=== PATIENT | female | born 1985 | race Hispanic/Latino ===

== ENCOUNTER 2018-10-10 13:05 | Emergency (ER) | payer OTHER ==
[2018-10-10 13:49] VITALS: BMI 40.3
[2018-10-10] MEDS ORDERED: Betamethasone Soluspan 30 mg/5mL Inj Susp IM ONE (13:54)
[2018-10-10 14:16] LABS: BASO # 0.1 K/uL (0.0-0.2); BASO % 0.6 % (0.0-2.0); EOS # 0.3 K/uL (0.0-0.7); EOS % 2.7 % (0.0-4.0); HEMOGLOBIN 12.1 g/dL (11.0-16.0); LYMPH # 2.2 K/uL (1.0-4.3); LYMPH % 21.2 % (20.0-40.0); MEAN CELL VOLUME 82.2 fL (81.0-99.0); MEAN CORPUSCULAR HEMOGLOBIN 28.1 pg (27.0-31.0); MEAN CORPUSCULAR HGB CONC 34.2 g/dL (33.0-37.0); MONO # 0.6 K/uL (0.0-0.8); MONO % 6.1 % (0.0-10.0); NEUT # 7.2 K/uL (1.8-7.0); NEUT % 69.4 % (50.0-75.0); RBC 4.3 Mil/uL (3.80-5.20); RED CELL DISTRIBUTION WIDTH 14.3 % (11.5-14.5); WHITE BLOOD COUNT 10.3 K/uL (4.8-10.8)
[2018-10-10] MEDS ORDERED: Lactated Ringer's 1,000 ML IV SCH (14:30)
[2018-10-10 14:31] LABS: SQUAMOUS EPITHIAL 9 /hpf (0-5); URINE BACTERIA RARE (<OCC); URINE BILIRUBIN NEGATIVE (NEGATIVE); URINE BLOOD 3+ (NEGATIVE); URINE CLARITY Hazy (Clear); URINE COLOR Yellow (YELLOW); URINE GLUCOSE (UA) NORMAL (Normal); URINE LEUKOCYTE ESTERASE TRACE Leu/uL (Negative); URINE PROTEIN 1+ mg/dL (NEGATIVE); URINE UROBILINOGEN NORMAL mg/dL (0.2-1.0)
[2018-10-10 14:51] LABS: ALB/GLOB RATIO 1.2 (1.0-2.1); ALBUMIN 3.6 g/dL (3.5-5.0); ALT/SGPT 10 U/L (9-52); AST/SGOT 20 U/L (14-36); BLOOD UREA NITROGEN 7 mg/dL (7-17); GFR NON-AFRICAN AMERICAN > 60; URIC ACID 3.8 mg/dL (2.2-7.5)
--- NOTE | 2018-10-10 15:27 | US ---
Date of service: 10/10/2018 PROCEDURE: OB Pelvic Ultrasound HISTORY: h/o marginal previa, vaginal bleeding COMPARISON: None available. FINDINGS: UTERUS: There is a single live intrauterine fetus in cephalic presentation. Placenta is anterior. BPD: 9.09 cm corresponding to 36 weeks and 6 days of gestational age. HC: 32.94 cm corresponding to 37 weeks and 3 days of gestational age. AC: 32.38 cm corresponding to 36 weeks and 2 days of gestational age. FL: 7.15 cm corresponding to 36 weeks and 4 days of gestational age with age (Ultrasound estimated): 36 weeks and 6 days Date of delivery (Ultrasound estimated) : 11/01/2018 Heart rate: 146 bpm. Ngozi-gestational hemorrhage: None. CERVIX: Cervical length measures 2.06 cm. No cervical abnormality seen. FREE FLUID: None. OTHER FINDINGS: Biophysical profile: breathin body movement: 2 Tone: 2 Amniotic Fluid: 2 Total score: 8/ 8 IMPRESSION: Single live intrauterine fetus in cephalic presentation with mean gestational age of 36 weeks and 6 days. Placenta is anterior. Cervical length is 2 cm. The estimated date of delivery by ultrasound is 11/01/2018. biophysical profile score is 8/ 8. Please note this is a limited OB ultrasound performed on an emergent basis. Clinical follow-up is advised.
--- NOTE | 2018-10-10 17:40 | OBHP ---
Datetime: 10/10/2018 13:53 IP Adm Impression: , intrauterine ; No Active Labor IP Admit Plan: Observation/Evaluation Admit Comment, IP Provider: This is a private patient of Dr. Karlene Elmore CC: Vaginal bleeding, history of marginal placenta previa HPI: Patient is a 32 year old at 36 weeks 3 days with history of marginal placenta previa presenti ng with vaginal bleeding. Patient states that she was at her OB's (Dr. Elmore) office for a routine vi sit this [facility] when she was found to have some vaginal bleeding during the digital exam. She was in structed to come to the hospital. She states that she was diagnosed with marginal placenta previa at 20 weeks. She states that this is the first time she is bleeding during the . She noticed triplett ving dark colored urine this morning and noticed some blood only when she wipes with the toilet paper . She denies seeing any blood clots on the toilet paper or toilet bowl. She states that she feels fe dario movements and complains of some abdominal cramping that she states that is normal for her. She de nies fevers, chills, shortness of breath, chest pain, abdominal pain, nausea, vomiting, diarrhea, or dysuria. 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 Periods are regular every 30 days. Denies history of STD's. PMH: denies PSH: denies Allergies: NKDA Family Hx: Mom 50s has HTN. Father 60s is healthy. Social hx: Denies tobacco, alcohol, or drug use during preganancy. 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 Assessment: Patient is a 32 year old at 36 weeks 3 days with history of marginal placenta pre via presenting with vaginal bleeding. Plan: - Biophysical profile pending - Bethamethasone 12mg IM given - IV fluids: LR @ 125ml/hr - Follow up UA, labs, RPR - Repeat CBC in 4 hours - Case discussed with Dr. Crow Haney, PGY-1 Attending Note: patient seen and evaluated by me with the Resident. I performed the speculum exam personally. I agree with the above as documented. - Patient is S/P Ob ultrasound with BPP: 36w 6d, EFW 6lb 9oz; cephalic presentation; anterior plac enta. MARCELO 9.78 cm; BPS 8/8 - Labs: Hgb 12.1; plt 130K. U/A: large blood, protein 3+ (secondary to large blood). All else wnl/ negative All of the above D/W Dr. Elmore: awaiting results of repeat CBC. Extremities - PN: Normal Abdomen - PN: Normal Back - PN: Not Done Breast - PN: Not Done Lungs - PN: Normal Heart - PN: Normal Thyroid - PN: Not Done Neurologic - PN: Normal HEENT - PN: Normal General - PN: Normal FHR - Baseline A Provider: 140 Comments, ACOG Physical Exam: General: NAD, AAO X3 Heart: RRR, normal S1, S2 Lungs: CTA b/l Abdomen: Soft, non-tender, normal bowel sounds. Patient is obese. Extremities: no edema Speculum exam: Cervix appears closed. Scant mucoid bloody discharge noted around cervix. No active bleeding EGA AdmitDate IP: 36.3 Vital Signs Provider: Reviewed; Within Normal Limits IP Chief Complaint: Vaginal bleeding NICHD Variability Prov Fetus A: Moderate 6-25bpm NICHD Accel Fetus A IP Provider: 15X15 FHR Category Provider Fetus A: Category I NICHD Decel Fetus A IP Provider: None Dilatation, Provider: deferred Genitourinary Exam: Normal
[2018-10-10 18:24] LABS: BASO # 0.1 K/uL (0.0-0.2); BASO % 0.4 % (0.0-2.0); EOS # 0.1 K/uL (0.0-0.7); EOS % 0.8 % (0.0-4.0); HEMOGLOBIN 12.1 g/dL (11.0-16.0); LYMPH # 1.5 K/uL (1.0-4.3); LYMPH % 10.6 % (20.0-40.0); MEAN CORPUSCULAR HGB CONC 32.6 g/dL (33.0-37.0); MEAN PLATELET VOLUME 8.7 fL (7.2-11.7); MONO # 0.4 K/uL (0.0-0.8); MONO % 2.8 % (0.0-10.0); NEUT # 11.7 K/uL (1.8-7.0); NEUT % 85.4 % (50.0-75.0); RBC 4.47 Mil/uL (3.80-5.20); RED CELL DISTRIBUTION WIDTH 14.2 % (11.5-14.5); WHITE BLOOD COUNT 13.7 K/uL (4.8-10.8)
--- NOTE | 2018-10-10 18:58 | OBPN ---
Datetime: 10/10/2018 18:49 IP Progress Plan: Discharge FHR - Baseline A Provider: 145 Gestation - Est Wks by US: 36w 3d Presentation-Admit: Vertex IP Progress Note Comment: Patient denies any vaginal bleeding. (+) FM Repeat Hgb 12.1 plt 126K Category [address] Elmore: discharge patient home Assessment:: 32 y.o. P0, 36w 3d, third trimester vaginal bleeidng abated, h/o marginal placenta pr aevia. S/P 1 of 2 doses of celestone. Hgb stable. Categoary 1 tracing. Mitzietn is clinically stable. Plan: 1) Discharge home 2) Excuse from work for this week 3) Return to L_D 1400 yhours for 2nd dose of celestone 4) F/U Dr. Elmore in 1 week, Tuesday - as per and discussed with Dr. Elmore Vital Signs Provider: Reviewed; Within Normal Limits NICHD Accel Fetus A IP Provider: 15X15 FHR Category Provider Fetus A: Category I NICHD Variability Prov Fetus A: Moderate 6-25bpm NICHD Decel Fetus A IP Provider: None Datetime: 10/10/2018 13:53 Dilatation, Provider: deferred
[2018-10-10 23:03] VITALS: BP 130/64; PULSE 101
== END 2018-10-10 19:03 | disposition home or self-care (01) ==
LOC: C.EROB 13:05
DX: O46.93 Antepartum hemorrhage, unspecified, third trimester (principal); Z3A.36 36 weeks gestation of pregnancy
CPT/HCPCS: 76815; 76818; 80053; 81001; 83615; 84550; 85025; 85384; 85610; 85730; 86592; 96372; 99284; J0702; J7120

== ENCOUNTER 2018-10-11 16:04 | Emergency (ER) | payer OTHER ==
[2018-10-10 13:49] VITALS: BMI 40.3
[2018-10-11] MEDS ORDERED: Betamethasone Soluspan 30 mg/5mL Inj Susp IM ONE (16:22)
--- NOTE | 2018-10-11 18:03 | OBHP ---
Datetime: 10/11/2018 16:29 IP Adm Impression: , intrauterine ; No Active Labor; Intact Membranes IP Chief Complaint Other: Second dose of celestone IP Admit Plan: Discharge home Admit Comment, IP Provider: Patient is a 32 year old at 36w4d CLAIRE 11/04/18 by LMP who presents t o the unit for second dose of celestone. Patient is doing well, offers no complaints at this time. Sh e endorses +FM, denies CTX, vaginal bleeding or leakage of fluid. Patient is a private of Dr Karlene edouard. 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 Family Hx: Mom has HTN. Father is healthy. PE: see above A/P: Patient is a 32 year old at 36w4d who presents for second dose of celestone. Pt was seen yesterday with c/o of vaginal bleeding. Hx of Marginal Previa that had ressolved. Pt was also having irregular contractions that ressolved with IV Hydration and was given one dose of Celestone prior to discharge home to return today for 2nd dose. -NST is reactive, Category I tracing -Second dose of celestone administered -Patient to follow up with Dr Elmore as scheduled on Tuesday - labor precautions given Plan discussed with Dr Shimon Vogt DO PGY-2 Pt seen and examined with Dr. Vogt and agree with all of her findings and POC Pelvic Type - PN: Adequate Extremities - PN: Normal Abdomen - PN: Normal Back - PN: Normal Breast - PN: Not Done Lungs - PN: Normal Heart - PN: Normal Thyroid - PN: Normal Neurologic - PN: Normal HEENT - PN: Normal General - PN: Normal FHR - Baseline A Provider: 135 Membranes, Provider: Intact Contraction Comments Provider: none Comments, ACOG Physical Exam: VSS Gen: AAOx3 Abd: Soft, gravid Ext: No clubbing, cyanosis, edema EGA AdmitDate IP: 36.4 Vital Signs Provider: Reviewed; Within Normal Limits IP Chief Complaint: Other NICHD Variability Prov Fetus A: Moderate 6-25bpm NICHD Accel Fetus A IP Provider: 15X15 FHR Category Provider Fetus A: Category I NICHD Decel Fetus A IP Provider: None Dilatation, Provider: Deferred Genitourinary Exam: Normal DTRs - PN: Normal Datetime: 10/10/2018 18:49 Presentation-Admit: Vertex Gestation - Est Wks by US: 36w 3d
[2018-10-11 20:53] VITALS: BP 121/58; PULSE 97; RESP 20; TEMP 97.7
== END 2018-10-11 16:35 | disposition home or self-care (01) ==
LOC: C.EROB 16:04
DX: Z23 Encounter for immunization (principal); Z3A.36 36 weeks gestation of pregnancy
CPT/HCPCS: 96372; 99283; J0702

== ENCOUNTER 2018-10-29 08:52 | Inpatient (IN) | payer BC, OTHER ==
--- NOTE | 2018-10-29 09:34 | OBADHP ---
Datetime: 10/29/2018 09:30 Admit Comment, IP Provider: A/P: IUP at 39+ wks in labor - primagravida - admit to unit for labor - reassess in 2 hours - Dr Elmore notified Presentation-Admit: Vertex FHR - Baseline A Provider: 160 Membranes, Provider: Intact Contraction Comments Provider: q5 Vital Signs Provider: Reviewed IP Chief Complaint: Uterine contractions NICHD Variability Prov Fetus A: Moderate 6-25bpm NICHD Accel Fetus A IP Provider: 15X15 FHR Category Provider Fetus A: Category I NICHD Decel Fetus A IP Provider: None Dilatation, Provider: 5 Effacement, Provider: 80 Station, Provider: 0 EGA AdmitDate IP: 39.1 IP Adm Impression: Term, intrauterine ; Active labor IP Admit Plan: Admit to unit; Initiate labor protocol Datetime: 10/11/2018 16:29 IP Chief Complaint Other: Second dose of celestone Pelvic Type - PN: Adequate Extremities - PN: Normal Abdomen - PN: Normal Back - PN: Normal Breast - PN: Not Done Lungs - PN: Normal Heart - PN: Normal Thyroid - PN: Normal Neurologic - PN: Normal HEENT - PN: Normal General - PN: Normal Comments, ACOG Physical Exam: VSS Gen: AAOx3 Abd: Soft, gravid Ext: No clubbing, cyanosis, edema Genitourinary Exam: Normal DTRs - PN: Normal Datetime: 10/10/2018 18:49 Gestation - Est Wks by US: 36w 3d
[2018-10-29] MEDS ORDERED: Lactated Ringer's 1,000 ML IV SCH (09:35)
[2018-10-29 10:16] LABS: BASO # 0.1 K/uL (0.0-0.2); BASO % 0.7 % (0.0-2.0); EOS # 0.4 K/uL (0.0-0.7); HEMOGLOBIN 12.9 g/dL (11.0-16.0); LYMPH # 2.5 K/uL (1.0-4.3); MEAN CELL VOLUME 82.3 fL (81.0-99.0); MEAN CORPUSCULAR HEMOGLOBIN 27.6 pg (27.0-31.0); MEAN CORPUSCULAR HGB CONC 33.6 g/dL (33.0-37.0); MEAN PLATELET VOLUME 8.9 fL (7.2-11.7); MONO # 0.8 K/uL (0.0-0.8); MONO % 6.1 % (0.0-10.0); NEUT # 8.7 K/uL (1.8-7.0); NEUT % 70.2 % (50.0-75.0); NRBC % 0.1 % (0.0-2.0); RBC 4.65 Mil/uL (3.80-5.20); RED CELL DISTRIBUTION WIDTH 14.9 % (11.5-14.5); WHITE BLOOD COUNT 12.4 K/uL (4.8-10.8)
[2018-10-29 10:33] LABS: PROTHROMBIN TIME 10.9 SECONDS (9.7-12.2)
[2018-10-29 10:38] LABS: SQUAMOUS EPITHIAL 1 /hpf (0-5); URINE BILIRUBIN NEGATIVE (NEGATIVE); URINE BLOOD NEGATIVE (NEGATIVE); URINE CLARITY Clear (Clear); URINE COLOR Straw (YELLOW); URINE GLUCOSE (UA) NORMAL (Normal); URINE LEUKOCYTE ESTERASE NEG Leu/uL (Negative); URINE PROTEIN NEGATIVE (NEGATIVE); URINE UROBILINOGEN NORMAL mg/dL (0.2-1.0)
[2018-10-29 10:48] LABS: ALB/GLOB RATIO 1.2 (1.0-2.1); ALBUMIN 3.7 g/dL (3.5-5.0); ALT/SGPT < 6 U/L (9-52); AST/SGOT 17 U/L (14-36); BLOOD UREA NITROGEN 9 mg/dL (7-17); GFR NON-AFRICAN AMERICAN > 60
[2018-10-29] MEDS ORDERED: Fentanyl/Bupivacaine HCl 250 ML EPI ONE (11:30)
--- NOTE | 2018-10-29 12:44 | OBPN ---
Datetime: 10/29/2018 12:37 IP Progress Impression Other: Decreased FHR/Loss of contact IP Procedures: Artificial ROM; Scalp Electrode; Sterile Vag Exam IP Progress Plan: Continue present management Membranes, Provider: Ruptured Amniotic Fluid Color, Provider: Clear FHR - Baseline A Provider: 160 IP Fetus A Comments: Loss of contact IP Progress Note Comment: A/P: IUP at 39+ wks in labor - primagravida - s/p epidural, maternal BP decreased, Anesthesia called s/p ephedrine - AROM with scalp electrode placed - resuscitation efforts (maternal O2, placement on maternal left) - will reassess in 1-2 hours Vital Signs Provider: Reviewed NICHD Accel Fetus A IP Provider: 15X15 FHR Category Provider Fetus A: Category II NICHD Variability Prov Fetus A: Moderate 6-25bpm NICHD Decel Fetus A IP Provider: Variable Datetime: 10/29/2018 09:30 Contraction Comments Provider: q5 Presentation-Admit: Vertex Dilatation, Provider: 5 Effacement, Provider: 80 Station, Provider: 0
--- NOTE | 2018-10-29 15:50 | OBPN ---
Datetime: 10/29/2018 15:48 IP Progress Impression: Normal progression of labor IP Progress Plan: Continue present management Contraction Comments Provider: q2-3 FHR - Baseline A Provider: 150 IP Progress Note Comment: A/P: IUP at 39+ wks in labor - primagravida - AROM - Cat 1 tracing, progressing well - s/p epidural - continue present mgmt NICHD Accel Fetus A IP Provider: 15X15 FHR Category Provider Fetus A: Category I NICHD Variability Prov Fetus A: Moderate 6-25bpm Dilatation, Provider: 7 Effacement, Provider: 90 Station, Provider: 0 NICHD Decel Fetus A IP Provider: None
--- NOTE | 2018-10-29 18:19 | OBPN ---
Datetime: 10/29/2018 18:17 IP Progress Impression: Normal progression of labor Contraction Comments Provider: q3 FHR - Baseline A Provider: 150 IP Progress Note Comment: A/P: IUP at 39 wks in labor - primagravida - AROM - normal progression - expect vaginal delivery Vital Signs Provider: Reviewed NICHD Accel Fetus A IP Provider: 15X15 FHR Category Provider Fetus A: Category I NICHD Variability Prov Fetus A: Moderate 6-25bpm Dilatation, Provider: 8 Effacement, Provider: 90 Station, Provider: 0 NICHD Decel Fetus A IP Provider: None
--- NOTE | 2018-10-29 20:51 | OBPN ---
Datetime: 10/29/2018 20:47 IP Progress Impression: Normal progression of labor IP Progress Plan: Continue present management Contraction Comments Provider: q2 FHR - Baseline A Provider: 150 IP Progress Note Comment: A/P: IUP at 39 wkes in labor - primagravida - fully - expect vaginal delivery Vital Signs Provider: Reviewed NICHD Accel Fetus A IP Provider: 15X15 FHR Category Provider Fetus A: Category I NICHD Variability Prov Fetus A: Moderate 6-25bpm Dilatation, Provider: 10 Effacement, Provider: 100 Station, Provider: 1 NICHD Decel Fetus A IP Provider: Early
[2018-10-29] MEDS ORDERED: Oxycodone/Acetaminophen 5/325 mg Tab PO PRN (23:48)
[2018-10-29] MEDS ORDERED: Benzocaine/Menthol 20%-0.5% Topical Spray (60 ml) TOP PRN (23:48)
--- NOTE | 2018-10-29 23:48 | OBDS ---
DELIVERY PERSONNEL Delivery Doctor: Mikey Aguilar DO System Designer: Chantelle Cunningham RN Anesthesiologist: Marley Hernandez MD MATERNAL INFORMATION Delivery Anesthesia: Epidural Medications in Delivery: PITOCIN 20UNITS IN LR Estimated Blood Loss (ml): 250 Placenta Cultured: No Maternal Complications: None Provider Comments: Pt pushing and fully delivered in VERENA position to a female infant with apgars 9,9 weighing 3005g. Loose nuchal cord reduced was noted. Head and body delivered uneventfully. Infant suctioned, cord was clamped and cut. scalp electrode was removed intact and uneventfully. Ba by handed to pediatricians. Placenta deliver uneventfully and intact. Pitocin started. uterus firm . 2nd degree perineal laceration repaired with 2-0 chromic gut in a running fashion. Hemostasis ach ieved. Lap, instrument, and needle counts correct x2 LABOR SUMMARY EDC: 11/04/2018 00:00 No. Babies in Womb: 1 Attempted: No Labor Anesthesia: Epidural LABOR INFORMATION Onset of Labor: 10/29/2018 02:00 Complete Dilatation: 10/29/2018 20:45 Oxytocin: Augmentation Group B Beta Strep: Done, Result Unknown (Annotations: per dr. aguilar, abt not needed) Steroids Given: None Reason Steroids Not Administered: Not Applicable MEMBRANES Membranes Rupture Method: Artificial Rupture of Membranes: 10/29/2018 17:45 Length of Rupture (hrs): 5.53 Amniotic Fluid Color: Clear STAGES OF LABOR Stage 1 hrs: 18 Stage 1 min: 45 Stage 2 hrs: 2 Stage 2 min: 32 Stage 3 hrs: 0 Stage 3 min: 5 Total Time in Labor hrs: 21 Total Time in Labor min: 22 VAGINAL DELIVERY Episiotomy: None Laceration Extension: Second Degree Laceration Type: Perineal Laceration Repair: Yes Laceration Repair Note: 2-0 chromic used in a running fashion BABY A INFORMATION Delivery Date/Time: 10/29/2018 23:17 Method of Delivery: Vaginal Born in Route : No : N/A Forceps: N/A Vacuum Extraction: N/A Shoulder Dystocia : No SHOULDER DYSTOCIA BABY A Delivery Date/Time: 10/29/2018 23:17 PRESENTATION/POSITION BABY A Presentation: Cephalic Cephalic Presentation: Vertex Vertex Position: Right Occipital Anterior Breech Presentation: N/A PLACENTA INFORMATION BABY A Placenta Delivery Time : 10/29/2018 23:22 Placenta Method of Delivery: Spontaneous Placenta Status: Delivered SCORES BABY A Heart Rate 1 min: >100 bpm Resp Effort 1 min: Good Cry Reflex Irritability 1 min: Cough or Sneeze or Pulls Away Muscle Tone 1 min: Active Motion Color 1 min: Body [place], Extremities Blue SCORE 1 MIN: 9 Heart Rate 5 min: >100 bpm Resp Effort 5 min: Good Cry Reflex Irritability 5 min: Cough or Sneeze or Pulls Away Muscle Tone 5 min: Active Motion Color 5 min: Body [place], Extremities Blue SCORE 5 MIN: 9 INFORMATION BABY A Gestational Age at Delivery: 39.1 Gestational Status: Term Outcome : Liveborn Infant Condition : Stable Sex: Female IDENTIFICATION/MEDS BABY A ID Band Number: [id number] Sensor Number: [id number] WEIGHT/LENGTH BABY A Infant Birthweight (gms): 3005 Infant Weight (lb): 6 Infant Weight (oz): 10 Length Inches: 19.50 Length cms: 49.5 CORD INFORMATION BABY A No. Cord Vessels: 3 Nuchal Cord : Around Neck x1, Loose Cord Blood Taken: Yes Suction: Mouth; Nose ASSESSMENT BABY A Infant Complications: None Physical Findings at Delivery: Within Normal Limits Infant Respirations: Appears Normal Rockboard Lather/ALS Called : No Care By: DR REYEZ Transferred To: Remains with Mother
[2018-10-30] MEDS: Multiple Vitamins Tab PO SCH (10:38)
[2018-10-30 11:24] LABS: BASO # 0.1 K/uL (0.0-0.2); BASO % 0.5 % (0.0-2.0); EOS # 0.1 K/uL (0.0-0.7); EOS % 0.6 % (0.0-4.0); HEMOGLOBIN 11.5 g/dL (11.0-16.0); LYMPH # 2.7 K/uL (1.0-4.3); LYMPH % 16.5 % (20.0-40.0); MEAN CELL VOLUME 82.4 fL (81.0-99.0); MEAN CORPUSCULAR HEMOGLOBIN 27.8 pg (27.0-31.0); MEAN CORPUSCULAR HGB CONC 33.7 g/dL (33.0-37.0); MEAN PLATELET VOLUME 8.6 fL (7.2-11.7); MONO # 1.3 K/uL (0.0-0.8); MONO % 7.8 % (0.0-10.0); NEUT # 12.3 K/uL (1.8-7.0); NEUT % 74.6 % (50.0-75.0); RBC 4.13 Mil/uL (3.80-5.20); RED CELL DISTRIBUTION WIDTH 14.6 % (11.5-14.5); WHITE BLOOD COUNT 16.4 K/uL (4.8-10.8)
[2018-10-30 16:15] VITALS: PULSE 92; RESP 18; TEMP 98.2
[2018-10-31] MEDS: Multiple Vitamins Tab PO SCH (09:21)
--- NOTE | 2018-10-31 16:09 | OBDCSUM ---
Datetime: 10/31/2018 12:13 Discharged to, Provider: Home Follow up at, Provider: Dr. Elmore Disch Instr Activity: Normal activity Disch Instr Diet: Regular Discharge Instructions, Provider: Routine instructions given Discharge Diagnosis, Provider: Term Delivered Discharge Time: 10/31/2018 12:13 Follow up in weeks, Provider: 6 weeks Disch Referrals: None Contraception discussed, Prov: No Disch Activity Restrictions: No sexual activity; Nothing in vagina - [place], tampons, douche Discharge Comment, Provider: 32 year old female ; status post vaginal delivery day 2. Seen a t request of Dr. Karlene Elmore No acute events overnight. Patient was examined this morning and was resting comfortably on her be d. Patient is tolerating her diet, and is passing gas, but has not yet had a bowel movement. Patient is also ambulating inside her room; does not report any discomfort or issue. She is currently breastf eeding several times per day. Patient also reports having great success using Sitz bath. On ROS patient denied fevers, chills, nausea, vomiting, and diarrhea. Assessment: Patient is a ; status post vaginal delivery day 2. Stable and Satisfactory condition for dischrge home Plan: 1) Encourage ambulation 2) Encourage hydration, 1 Liter per day. 3) Continue breast feeding, every 2 hours. 4) F/u in 4-6 weeks or sooner as needed 5) Use motrin for pain as needed and Rx given
[2018-10-31 16:16] VITALS: BP 127/80; O2SAT 97
== END 2018-10-31 19:20 | disposition home or self-care (01) | DRG 807 ==
LOC: C.EROB 08:52 → C.4D 09:31 → C.4M 10-30 01:54
PROVIDERS: ADMIT Obstetrics & Gynecology; ATTEND Obstetrics & Gynecology
PROC: 10E0XZZ Delivery of Products of Conception, External Approach (ICD-10-PCS; principal; 2018-10-29)
PROC: 0KQM0ZZ Repair Perineum Muscle, Open Approach (ICD-10-PCS; 2018-10-29)
PROC: 10907ZC Drainage of Amniotic Fluid, Therapeutic from Products of Conception, Via Natural or Artificial Opening (ICD-10-PCS; 2018-10-29)
DX: O69.81X0 Labor and delivery complicated by cord around neck, without compression, not applicable or unspecified (principal); O70.1 Second degree perineal laceration during delivery; Z3A.39 39 weeks gestation of pregnancy; Z37.0 Single live birth